=== PATIENT | female | born 1960 | race Caucasian/White ===

== ENCOUNTER → 2018-07-24 | Day surgery (SDC) | payer BC ==
[~2018-07-24] MED LIST: Acetaminophen/HYDROcodone 325-5 MG Tab PO PRN; HYDROmorphone 0.5 MG/0.5 ML Syringe IVPUSH PRN; HYDROmorphone 0.5 MG/0.5 ML Syringe ONE; Ketorolac 30 MG/ML SDV ONE; Labetalol 100 MG/20 ML MDV ONE; Lactated Ringers 1,000 ML ONE; Lidocaine 1% 4 ML ONE; Lidocaine 1%/Sod Bicarbonate in NS 8.4% 1 ML Syringe IDERM PRN; Midazolam 1 MG/ML 2 ML SDV ONE; Ondansetron 4 MG/2 ML SDV IVPUSH PRN; Ondansetron 4 MG/2 ML SDV ONE; Propofol 200 MG/20 ML SDV ONE; Sodium Chloride 0.9% 10 ML Syringe FLUSH PRN; fentaNYL 100 MCG/2 ML SDV ONE; fentaNYL 250 MCG/5 ML SDV ONE
[2018-07-24] MEDS: Lactated Ringers 1,000 ML IV SCH ×2 (09:10→15:28)
--- NOTE | 2018-07-24 09:14 | PCM.PREANE ---
Preanesthetic Assessment - Anesthesia/Transfusion/Family Hx Anesthesia History: Prior Anesthesia Without Reaction Family History of Anesthesia Reaction: No Transfusion History: No Prior Transfusion(s) - Review of Systems General: No Symptoms Pulmonary: No Symptoms Cardiovascular: No Symptoms Gastrointestinal: No Symptoms Neurological: No Symptoms Other: Reports: Diabetes (check 98 @09:12) - Physical Assessment NPO Status Date: 07/23/18 NPO Status Time: 00:00 Pulse: 74 O2 Sat by Pulse Oximetry: 100 Respiratory Rate: 16 Blood Pressure: 145/67 Temperature: 37.2 C Height: 1.63 m Weight: 86.682 kg ASA Class: 2 Mental Status: Alert & Oriented x3 Airway Class: Mallampati = 1 Dentition: Reports: Partial (lower left), [place](s) Thyro-Mental Finger Breadths: 3 Mouth Opening Finger Breadths: 3 ROM/Head Extension: Full Lungs: Clear to Auscultation, Normal Respiratory Effort Cardiovascular: Regular Rate, Regular Rhythm, No Murmurs - Lab Values: Laboratory Last Values MRSA (PCR) Negative 07/22/18 09:32 - Imaging/EKG Impressions: on chart SR rate 69 - Allergies Allergies/Adverse Reactions: Allergies Allergy/AdvReac Type Severity Reaction Status Date / Time No Known Allergies Allergy Verified 04/21/15 10:17 - Blood Blood Available: No Product(s) Available: None - Anesthesia Plan Pre-Op Medication Ordered: None - Acknowledgements Anesthesia Type Planned: General Anesthesia Pt an Appropriate Candidate for the Planned Anesthesia: Yes Alternatives and Risks of Anesthesia Discussed w Pt/Guardian: Yes Pt/Guardian Understands and Agrees with Anesthesia Plan: Yes PreAnesthesia Questionnaire HEENT History: Reports: Impaired Vision, Other (See Below) Other HEENT History: wears glasses Cardiovascular History: Reports: None Respiratory History: Reports: None Genitourinary History: Reports: None FRONT DESK COORDINATOR History: Reports: None Musculoskeletal History: Reports: Other (See Below) Other Musculoskeletal History: right foot pain Neurological History: Reports: None Psychiatric History: Reports: Anxiety, Depression Endocrine/Metabolic History: Reports: None Hematologic History: Reports: Other (See Below) Other Hematologic History: factor V leiden Immunologic History: Reports: None Oncologic (Cancer) History: Reports: None Dermatologic History: Reports: None - Past Surgical History Head Surgeries/Procedures: Reports: None HEENT Surgical History: Reports: Cataract Surgery, Tonsillectomy Cardiovascular Surgical History: Reports: None Respiratory Surgical History: Reports: None GI Surgical History: Reports: Cholecystectomy, Colonoscopy Female Surgical History: Reports: Breast Biopsy, Tubal Ligation Endocrine Surgical History: Reports: Other (See Below) Other Endocrine Surgeries/Procedures: partial thyroidectomy Neurological Surgical History: Reports: None Musculoskeletal Surgical History: Reports: Other (See Below) Other Musculoskeletal Surgeries/Procedures:: bunionectomy Oncologic Surgical History: Reports: None Dermatological Surgical History: Reports: None - SUBSTANCE USE Smoking Status *Q: Former Smoker Recreational Drug Use History: No - HOME MEDS Home Medications: Home Meds Aspirin [Adult Aspirin] 81 mg PO DAILY 07/23/18 [History] DULoxetine HCl [Duloxetine HCl] 60 mg PO DAILY 07/23/18 [History] Linaclotide [Linzess] 290 mcg PO DAILY 07/23/18 [History] cycloSPORINE [Restasis] 1 drop EYEBOTH BID 07/23/18 [History] metFORMIN [Glucophage XR] 500 mg PO DAILY 07/23/18 [History] Acetaminophen/HYDROcodone [Rochelle 325-5 MG] 1 - 2 tab PO Q6H PRN #40 tablet 07/24 [Rx] Enoxaparin Sodium [Lovenox] 40 mg SQ DAILY #10 ml 07/24/18 [Rx] - CURRENT (IN HOUSE) MEDS Current Meds: Current Medications Lactated Ringer's (Ringers, Lactated) 1,000 mls @ 125 mls/hr IV ASDIRECTED JH Stop: 07/24/18 23:00 Lidocaine/Sodium Bicarbonate (Buffered Lidocaine 1% In Ns 8.4%) 0.25 ml IDERM ONETIME PRN PRN Reason: Prior to IV Start Stop: 07/24/18 18:00 Sodium Chloride (Saline Flush) 10 ml FLUSH ASDIRECTED PRN PRN Reason: Keep Vein Open Stop: 07/24/18 18:00
[2018-07-24] MEDS: Bupivacaine 0.25% 30 ML SDV ONE ×2 (11:47→12:31)
--- NOTE | 2018-07-24 13:04 | PCM.POSTAN ---
POST ANESTHESIA ASSESSMENT - MENTAL STATUS Mental Status: Somnolent - VITAL SIGNS Pulse Rate: 89 SaO2: 100 Resp Rate: 17 Blood Pressure: 136/81 Temperature: 36.3 C - RESPIRATORY Respiratory Status: Respiratory Rate WNL, Airway Patent, O2 Saturation Stable, Supplemental Oxygen - CARDIOVASCULAR CV Status: Pulse Rate WNL, Blood Pressure Stable - GASTROINTESTINAL GI Status: No Symptoms - PAIN Pain Score: 0 - POST OP HYDRATION Hydration Status: Adequate & Stable - OBSERVATIONS Free Text/Narrative:: no anesthesia complications noted
[2018-07-24] MEDS: fentaNYL 100 MCG/2 ML SDV IVPUSH PRN ×2 (13:08→13:53)
--- NOTE | 2018-07-24 14:05 | CR ---
First toe: 8 fluoroscopic spot views were obtained utilizing C-arm device of the right first toe. Comparison: No prior right toe or foot exam. Findings: Study is a procedural exam showing surgery at the MTP joint. Plate and screws are noted on final films across this joint. Two fixation pins are seen on the final films within the second digit. Fluoroscopy time given as 30.9 seconds. Impression: 1. Operative study as noted above. Diagnostic code #2
--- NOTE | 2018-07-31 10:19 | PCM.OPNOTE ---
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
--- NOTE | 2018-07-31 10:58 | OR ---
DATE OF OPERATION: 07/24/2018 SURGEON: Isra Murlilo MD OPERATION PERFORMED: Right great toe deep hardware removal with first metatarsophalangeal joint fusion with dorsal closing osteotomy of the distal second metatarsal. 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 ANESTHESIA: General with local. ANESTHESIA PROVIDER: Efren Sweeney CRNA. [employer]DLE SCHOOL DIRECTOR: None. ESTIMATED BLOOD LOSS: 250 mL. COMPLICATIONS: None. CONDITION: Stable. DESCRIPTION OF PROCEDURE: The patient was identified in the preoperative holding area. Proper site was marked and identified by the surgeon. The patient was taken back to the operating theater, where after adequate anesthesia, the patient's right lower extremity had a nonsterile tourniquet applied and was then sterilely prepped and draped in the usual sterile fashion. OR time-out was performed. The patient received 2 g of IV Ancef. At this time, the right lower extremity was exsanguinated and the tourniquet was insufflated to 250 mmHg. Our previous incision was utilized, but this was extended over the first MTP joint. Blunt dissection was taken down to the first MTP joint and it was noted to have significant adhesions with scarring and it was very difficult to mobilize the first MTP joint. I did have to resect the collateral ligaments and then elevate the sesamoids as they were significantly scarred in. At this point, we were able to identify the previous hardware and we were able to remove the deep hardware at this time. The patient was noted to have significant loss of the joint coverage noted on the lateral side of the head of the first metatarsal. At this time, a guide pin was placed in a center-center position utilizing C-arm fluoroscopy in the first metatarsal. Using a concentric reamer for 20 mm, convex reamer was utilized to bring it down to good bony bleeding bed. There was noted to be just devoid of bone on the lateral side, again of the metatarsal head. At this time, all other soft tissue was removal. All bony spurs were removed. Attention was turned to the first proximal phalanx. At this time, guide pin was again placed in the center-center position and the concave reamer was then used for size 20 at this time. At this time, it was found to have a good bony bleeding bed. At this time, a Culver 3.0 locking plate was placed superiorly. It was found to have good compression identified over the fusion site. We did temporarily pin with a K-wire the fusion site in roughly 10 degrees of dorsiflexion in line with the first ray. It was found to be in adequate position on AP and lateral views of the first MTP joint. At this time, a nonlocking screw as well as a locking screw were then used proximally and distally to the first MTP joint fusion site. At this time, it was noted that we would probably have to use bone graft at this time as well and we did after irrigating bone graft especially on the lateral side of the first MTP joint fusion. Attention was then turned to the second MTP joint. An incision was made and a capsulotomy was performed of the second MTP joint. I did release the tight capsule on the lateral side of the second MTP joint and then turned my attention to the distal second metatarsal. It was noted that there was a defect on the lateral side of the second metatarsal head of cartilage that was causing the lateral drift of the second toe. At this time, the patient did have good plantar cartilage, so at this time we would do a dorsal closing osteotomy. At this time, I did perform a dorsal closing osteotomy of the distal metaphysis of the second metatarsal and did put 2 retrograde K-wires to hold the osteotomy site in place. It was noted to be adequately lined up with no signs of subluxation of the joint on both AP and lateral views of the second MTP joint. At this time, adequate saline was irrigated through all the wounds. An 0 Vicryl was used subcutaneously and nylon was used for the skin. The patient was placed in a sterile soft dressing and a posterior slab splint and sent to the PACU in stable condition. RACHEL /[id number]
== END | disposition home or self-care (01) ==
LOC: JD.SDS 08:44
PROVIDERS: ATTEND Orthopaedic Surgery
DX: T84.84XA Pain due to internal orthopedic prosthetic devices, implants and grafts, initial encounter (principal); M19.071 Primary osteoarthritis, right ankle and foot; M20.41 Other hammer toe(s) (acquired), right foot; M20.21 Hallux rigidus, right foot; I10 Essential (primary) hypertension; F41.9 Anxiety disorder, unspecified; F32.9 Major depressive disorder, single episode, unspecified; D68.51 Activated protein C resistance; R73.9 Hyperglycemia, unspecified; Z87.891 Personal history of nicotine dependence; Z79.82 Long term (current) use of aspirin; Z79.84 Long term (current) use of oral hypoglycemic drugs; Z79.899 Other long term (current) drug therapy
CPT/HCPCS: 20680; 28308; 28750; 76000; 82962; 87641; A9270; C1713; J1170; J1885; J2250; J2405; J2704; J3010; J3490; J7120; 01470; J2001